=== PATIENT | female | born 1975 | race Hispanic/Latino ===

== ENCOUNTER 2017-11-06 07:55 | Emergency (ER) | payer BC ==
[2017-11-06 08:01] VITALS: BP 120/83; PULSE 100; RESP 18; TEMP 98.6; O2SAT 100
--- NOTE | 2017-11-06 11:15 | C.PDOC ---
History Of Present Illness 42 year old female presents to ED for evaluation after sustaining laceration to left hand while cleaning after cooking in the kitchen. Bleeding was controlled by pressure. Pt is up to date with tetanus vaccination. Denies change in sensation, or any other complaints at this time. Chief Complaint (Nursing): Abnormal Skin Integrity History Per: Patient History/Exam Limitations: no limitations Current Symptoms Are (Timing): Still Present Location Of Injury: Left: Hand Recent travel outside of the [place]: No Additional History Per: Patient Past Medical History Reviewed: Historical Data, Nursing Documentation, Vital Signs Vital Signs: Last Vital Signs Temp 98.6 F 11/06/17 07:58 Pulse 100 H 11/06/17 07:58 Resp 18 11/06/17 07:58 BP 120/83 11/06/17 07:58 Pulse Ox 100 11/06/17 11:19 Family History: States: Unknown Family Hx - Social History Hx Alcohol Use: Yes Hx Substance Use: No - Immunization History Hx Tetanus Toxoid Vaccination: No Hx Influenza Vaccination: No Hx Pneumococcal Vaccination: No Review Of Systems Except As Marked, All Systems Reviewed And Found Negative. Constitutional: Negative for: Fever, Chills Skin: Positive for: Other (laceration to left hand) Neurological: Negative for: Weakness, Numbness Physical Exam - Physical Exam Appears: Non-toxic, No Acute Distress Skin: Warm, Dry, Other (1 cm of laceration to left thenar eminence) Head: Atraumatic, Normacephalic Eye(s): bilateral: Normal Inspection Extremity: Normal ROM (FROM of left hand), Capillary Refill (less than 2 seconds ), No Deformity, No Swelling Pulses: Left Radial: Normal Neurological/Psych: Oriented x3, Normal Speech ED Course And Treatment O2 Sat by Pulse Oximetry: 100 (RA) Pulse Ox Interpretation: Normal Laceration - Laceration Repair left hand Wound Length (In cm): 1 Description Of Wound: Linear Wound Cleansed With: Sterile Saline Wound Examination: Irrigated With Saline, No FB With Wound Exploration Wound Closure: Skin Glue (Dermabond) Wound Complexity: Simple Medical Decision Making Medical Decision Making: Laceration was repaired with Dermabond. Pt tolerated procedure well, no complications. Pt is being discharged home with instructions to follow up with PMD. Disposition - [facility] - Disposition: HOME/ ROUTINE Disposition Time: 08:20 Condition: IMPROVED Additional Instructions: Thank you for letting us take care of you today. The emergency medical care you received today was directed at your acute symptoms. If you were prescribed any medication, please fill it and take as directed. It may take several days for your symptoms to resolve. Return to the Emergency Department if your symptoms worsen, do not improve, or if you have any other problems. Please contact your doctor or call one of the physicians/clinics you have been referred to that are listed on the Patient Visit Information form that is included in your discharge packet. Bring any paperwork you were given at discharge with you along with any medications you are taking to your follow up visit. Our treatment cannot replace ongoing medical care by a primary care provider (PCP) outside of the emergency department. Thank you for allowing the [facility] team to be part of your care today. Follow up with your primary care doctor or the emergency room if you have any concerns. Prescriptions: Cephalexin [cephalexin] 500 mg PO BID #10 cap Instructions: Laceration Repair With Glue (DC) Forms: [employer] (Namibian) - Clinical Impression Clinical Impression: Hand laceration - Scribe Statement The provider has reviewed the documentation as recorded by the Scribe Yu Hopkins All medical record entries made by the Scribe were at my direction and personally dictated by me. I have reviewed the chart and agree that the record accurately reflects my personal performance of the history, physical exam, medical decision making, and the department course for this patient. I have also personally directed, reviewed, and agree with the discharge instructions and disposition.
== END 2017-11-06 08:32 | disposition home or self-care (01) ==
LOC: C.ER 07:55 → MERGE 07:55 → C.ER 08:32
DX: S61.412A Laceration without foreign body of left hand, initial encounter (principal); Y93.G3 Activity, cooking and baking